=== PATIENT | female | born 1980 | race Hispanic/Latino ===

== ENCOUNTER 2019-10-04 22:21 | Emergency (ER) | payer MEDICAID, SELFPAY ==
--- NOTE | ~2019-10-04 | US_ITS ---
EXAMINATION: US pelvic complete w TV DATE: 10/05/2019 02:40 INDICATION: Vaginal bleeding. Evaluate for ectopic . TECHNIQUE: Real-time transabdominal and transvaginal obstetric ultrasound. FINDINGS: No prior studies for comparison. The uterus measures 7.7 x 3.8 x 6.3 cm. There is an intrauterine gestational sac containing a yolk sa c. No pole identified. Mean sac diameter is 1.49 cm corresponding to 6 week 1 day gestation (ED D 05/29/2020). There is a 1.9 cm corpus luteal cyst of the right ovary. Small amount of complex free f luid in the left adnexa. IMPRESSION: 1. Intrauterine gestational sac corresponding to 6 week 1 day gestation. There is an associated yolk sac. No pole is identified. Recommend follow-up with serial quantitative beta-hCG levels and ul trasound as clinically indicated. 2: 1.9 cm corpus luteal cyst of the right ovary. Reviewed, dictated and finalized at location A. IMPRESSION: 1. Intrauterine gestational sac corresponding to 6 week 1 day gestation. There is an associated yolk sac. No pole is identified. Recommend follow-up wit h serial quantitative beta-hCG levels and ultrasound as clinically indicated. 2: 1.9 cm corpus luteal cyst of the right ovary.
[2019-10-04 22:24] VITALS: BP 120/66; PULSE 76; RESP 19; TEMP 36.3; O2SAT 100
[2019-10-04 23:40] VITALS: BP 112/67; PULSE 73; RESP 18; O2SAT 99
[2019-10-04 23:43] VITALS: BP 121/74; PULSE 76
[2019-10-04 23:44] VITALS: BP 109/68; BP 112/67; PULSE 79; PULSE 88
[2019-10-04 23:56] LABS: Basophils Percent Auto 0.5 % (0.2-1.2); Eosinophils Absolute Auto 0.1 K/mm3 (0-0.3); Eosinophils Percent Auto 0.9 % (0-4.4); Hematocrit 32.7 % (37.0-47.0); Hemoglobin 11.4 g/dL (12.0-15.0); Immature Granulocyte Absolute 0.02 K/mm3 (0.00-0.031); Immature Granulocyte Percent A 0.2 % (0-0.5); Lymphocytes Absolute Auto 2.48 K/mm3 (0.9-3.2); Lymphocytes Percent Auto 29.1 % (18.3-44.2); Mean Corpuscular HGB Conc 34.9 g/dl (32-36); Mean Corpuscular Hemoglobin 31.9 pg (26-34); Mean Corpuscular Volume 91.6 fl (80-100); Mean Platelet Volume 10.6 fl (7.4-10.4); Monocytes Absolute Auto 0.7 K/mm3 (0.1-0.6); Monocytes Percent Auto 8.7 % (2.6-8.5); Neutrophils Absolute Auto 5.2 K/mm3 (1.3-6.7); Neutrophils Percent Auto 60.6 % (45.5-73.1); Platelet Count Result 278 k/mm3 (150-375); Red Blood Count 3.57 M/mm3 (4.2-5.4); Red Cell Distribution Width 11.8 % (11.5-14.5); White Blood Count 8.5 K/mm3 (4.5-10.0)
[2019-10-05] VITALS: BP 113/78; PULSE 79; RESP 15; O2SAT 98
--- NOTE | 2019-10-05 00:30 | ED.FEMALEGU ---
HPI - Female Genitourinary General Chief complaint: Vaginal Bleeding Stated complaint: 6 WEEKS PREG, WAIST PAIN Time Seen by Provider: 10/04/19 22:30 Source: patient Mode of arrival: ambulatory Limitations: no limitations History of Present Illness HPI Narrative: This patient is a 39 year old female approximately 6 weeks GA who presents for evaluation of vaginal bleeding. She states tonight she noticed lower back pain and lower abdominal tightness. Later she noticed a small amount blood when she wipes . She has come to ER tonight because her vaginal bleeding is worsening. She also reports some lightheadedness. She states she had a miscarriage 2 months ago and her last menstrual perior was August 20. MD elicited complaint: vaginal bleeding Related Data Allergies Allergy/AdvReac Type Severity Reaction Status Date / Time No Known Allergies Allergy Unverified 10/05/19 03:55 Review of Systems Review of Systems: All systems reviewed & are unremarkable except as noted in HPI and below Constitutional: Constitutional: Denies chills and Denies fatigue Cardiovascular: Cardiovascular: Denies chest pain, Denies rapid heart rate and Denies radiating jaw, neck or arm pain Respiratory: Respiratory: Denies cough and Denies dyspnea Musculoskeletal: Musculoskeletal: Reports back pain PMFSH Past Medical History Medical History (Updated 10/05/19 @ 03:30 by Jayshree Claire MD) Patient denies medical problems Social History Social History (Updated 03/10/19 @ 09:40 by Dafne Caraballo PA-C) Smoking status: Never smoker Substance use: never Gender identity (if verbalized by the patient): Female Exam Narrative: Exam Narrative: GENERAL: Well-appearing, well-nourished, and in no acute distress. HEAD: Normocephalic, atraumatic EYES: PERRLA and EOMI, conjunctiva clear without discharge THROAT:Mucous membranes moist, Oropharynx normal without erythema, exudate, peritonsillar swelling or fluctuance NECK: Supple, without lymphadenopathy or mass RESPIRATORY: No respiratory distress, Airway patent, Respirations non-labored, Clear to auscultation without rales, rhonchi or wheeze HEART: Regular rate and rhythm. No murmur heard. Normal peripheral pulses. ABDOMEN: Soft, nontender, nondistended, normal active bowel sounds. No masses. No rebound or guarding, No organomegaly. EXTREMITIES: No edema, normal strength with full range of motion. SKIN: Warm, dry, normal color without rash NEURO: Alert and oriented x3. CN 2-12 grossly intact. No focal deficits. PSYCH: Normal mood and affect. : Speculum Exam - Vagina: abnormal vaginal discharge (brown discharge) Speculum Exam - Cervix: Cervical os closed Bimanual Exam- Adnexa, other: no masses Skin: General skin exam: normal color Rashes: no rashes Course Reevaluation(s) Reevaluation #1: I have discussed with patient that she has been found to have ovarian cyst and IUP. She states seh will follow up with PCP. She had small amount of FF likely from ruptured cyst. I discussed she will need to follow this week. Date: 10/05/19 Time: 03:23 Vital Signs Vital signs: Vital Signs Temperature 97.4 F L 10/04/19 22:24 Pulse Rate 76 10/04/19 22:24 Respiratory Rate 19 10/04/19 22:24 Blood Pressure 120/66 10/04/19 22:24 Pulse Oximetry 100 10/04/19 22:24 Temperature 97.4 F L 10/04/19 22:24 Pulse Rate 78 10/05/19 03:54 Respiratory Rate 14 10/05/19 03:54 Blood Pressure 120/78 10/05/19 03:54 Pulse Oximetry 97 10/05/19 03:54 MDM - Female Genitourinary Differential Diagnosis Differential diagnosis: Likely bacterial vaginosis, trichomoniasis, ovarian cyst, ruptured ovarian cyst and other (ectopic, threatened ) Lab Data Attestation: I reviewed the patient's lab results. Result diagrams: 10/04/19 23:42 Labs: Lab Results 10/04/19 10/04/19 10/04/19 Range/Units 23:42 23:42 23:42 WBC 8.5 (4.5-10.0) K/mm3 RBC
[2019-10-05 01:04] LABS: Add Urine Microscopic? YES; Appearance Urine Cloudy (Clear); Bacteria Urine Trace /hpf; Bilirubin Urine Negative (Negative); Blood Urine 2+ (Negative); Color Urine Yellow (Yellow); Glucose Urine UA Negative (Negative); Ketones Urine Negative (Negative); Leukocyte Esterase Ur 3+ LEU/UL (Negative); Mucus Urine Rare /lpf; Nitrate Urine Negative (Negative); Protein Urine 1+ mg/dL (Negative); Specific Grav Ur 1.016 (1.001-1.035); Squamous Epithelial Cell Urine Many /hpf (Few); Urobilinogen Urine Negative mg/dL (<2.0); WBC Urine >75 /hpf
[2019-10-05 01:17] VITALS: BP 111/68; PULSE 71; RESP 15; O2SAT 99
[2019-10-05 02:32] VITALS: BP 112/70; PULSE 72; RESP 15; O2SAT 99
[2019-10-05 03:54] VITALS: BP 120/78; PULSE 78; RESP 14; O2SAT 97
== END 2019-10-05 03:55 | disposition home or self-care (01) ==
PROVIDERS: Emergency Provider General Practice; PCP Obstetrics & Gynecology
DX: O20.9 Hemorrhage in early pregnancy, unspecified (principal); O34.81 Maternal care for other abnormalities of pelvic organs, first trimester; N83.11 Corpus luteum cyst of right ovary; Z3A.01 Less than 8 weeks gestation of pregnancy; O23.41 Unspecified infection of urinary tract in pregnancy, first trimester
CPT/HCPCS: 36415; 76830; 76856; 81001; 81025; 84702; 85025; 85461; 86902; 87070; 87077; 87086; 87088; 87186; 87491; 87591; 87808; 96365; 99284; J0696

== ENCOUNTER 2019-11-20 09:09 | Emergency (ER) | payer MEDICAID, SELFPAY ==
[2019-11-20 09:15] VITALS: BP 118/79; PULSE 80; RESP 18; TEMP 36.2; O2SAT 100
[2019-11-20 09:54] LABS: Add Urine Microscopic? YES; Appearance Urine Cloudy (Clear); Bacteria Urine Trace /hpf; Bilirubin Urine Negative (Negative); Blood Urine 1+ (Negative); Color Urine Yellow (Yellow); Glucose Urine UA Negative (Negative); Ketones Urine Negative (Negative); Leukocyte Esterase Ur 3+ LEU/UL (Negative); Mucus Urine Rare /lpf; Nitrate Urine Negative (Negative); Protein Urine 1+ mg/dL (Negative); RBC Urine 21-50 /hpf (0-2); Specific Grav Ur 1.017 (1.001-1.035); Squamous Epithelial Cell Urine Many /hpf (Few); Urobilinogen Urine Negative mg/dL (<2.0); WBC Urine >75 /hpf
--- NOTE | 2019-11-20 10:02 | ED.FEMALEGU ---
HPI - Female Genitourinary General Chief complaint: Urogenital-Female Stated complaint: UTI sx Time Seen by Provider: 11/20/19 09:41 Source: patient Mode of arrival: ambulatory Limitations: no limitations History of Present Illness HPI Narrative: This patient is a 39 year old female who presents for evaluation of possible UTI. She developed pain with urination this morning. She denies nausea, vomiting, back pain, or fever. She is . She denies vaginal bleeding or spotting. She is getting care in [place], and she has had an ultrasound showing IUP with heart rate. MD elicited complaint: UTI Related Data Allergies Allergy/AdvReac Type Severity Reaction Status Date / Time No Known Allergies Allergy Unverified 10/05/19 03:55 Review of Systems Review of Systems: All systems reviewed & are unremarkable except as noted in HPI and below PMFSH Past Medical History Medical History (Updated 11/20/19 @ 10:07 by Jayshree Claire MD) Patient denies medical problems Surgical History Surgical History (Updated 11/20/19 @ 10:04 by Jayshree Claire MD) No history of previous surgery Social History Social History (Updated 03/10/19 @ 09:40 by Dafne Caraballo PA-C) Smoking status: Never smoker Substance use: never Gender identity (if verbalized by the patient): Female Exam Const: General: no acute distress and alert Orientation/consciousness: patient oriented x3 Eyes: EOM: EOMs intact bilaterally Chest: Chest palpation & inspection: normal inspection of the chest Resp: Effort & Inspection: normal respiratory effort and no retractions Auscultation: clear to auscultation bilaterally Cardio: Rate: regular rate Rhythm: regular rhythm Heart sounds: no murmurs GI: GI Palp: Yes Soft to palpation, No Tenderness to palpation present (GI), No Guarding due to palpation present (GI) and No Rigid due to palpation : General: Yes no CVA tenderness Back/Spine/Pelvis: Back: no CVA tenderness Skin: General skin exam: normal color Rashes: no rashes Neuro: General: patient oriented x3, moves all extremities and CN's II-XI intact bilaterally Extrem: General: normal to inspection Course Reevaluation(s) Reevaluation #1: I reviewed her urine culture from last visit. IT was sensitive to macrobid so I will prescribed that. Date: 11/20/19 Time: 10:06 Vital Signs Vital signs: Vital Signs Temperature 97.2 F L 11/20/19 09:15 Pulse Rate 80 11/20/19 09:15 Respiratory Rate 18 11/20/19 09:15 Blood Pressure 118/79 11/20/19 09:15 Pulse Oximetry 100 11/20/19 09:15 Temperature 97.2 F L 11/20/19 09:15 Pulse Rate 80 11/20/19 10:22 Respiratory Rate 16 11/20/19 10:22 Blood Pressure 117/68 11/20/19 10:22 Pulse Oximetry 100 11/20/19 10:22 MDM - Female Genitourinary Lab Data Labs: Lab Results 11/20/19 Range/Units 09:40 Urine Color Yellow (Yellow) Urine Appearance Cloudy H (Clear) Urine pH 7.0 (5.0-9.0) Ur Specific [place] 1.017 (1.001-1.035) Urine Protein 1+ H (Negative) mg/dL Urine Glucose (UA) Negative (Negative) mg/dL Urine Ketones Negative (Negative) mg/dL Ur Blood (Man) 1+ H (Negative) Urine Nitrate Negative (Negative) Urine Bilirubin Negative (Negative) Urine Urobilinogen Negative (<2.0) mg/dL Leukocyte Esterase Rfl 3+ H (Negative) BRYAN/UL Urine RBC 21-50 H (0-2) /hpf Urine WBC >75 H /hpf Ur Squamous Epith Cells Many H (Few) /hpf Urine Bacteria Trace /hpf Urine Mucus Rare /lpf Discharge Plan Discharge Clinical Impression: Urinary tract infection Qualifiers: Urinary tract infection type: site unspecified Patient Disposition: Home, Self-Care Condition: Stable Instructions: Antibiotic Form, Urinary Tract Infection in (ED) Additional Instructions: Take these antibiotics. Follow up with your OB to make sure you are on the right antibiotics. Prescri
[2019-11-20 10:22] VITALS: BP 117/68; PULSE 80; RESP 16; O2SAT 100
== END 2019-11-20 10:22 | disposition home or self-care (01) ==
PROVIDERS: Emergency Provider General Practice
DX: N39.0 Urinary tract infection, site not specified (principal)
CPT/HCPCS: 81001; 87086; 87088; 99283

== ENCOUNTER 2020-05-23 23:20 | Inpatient (IN) | payer OTHER, SELFPAY ==
[2020-05-23 23:46] VITALS: BP 120/82; PULSE 96
[2020-05-24] VITALS (84 sets, daily range): BP systolic 72–134; BP diastolic 38–84; PULSE 64–107; RESP 14–20; TEMP 36.4–36.7; O2SAT 96–100; BMI 27.9
[2020-05-24 00:33] LABS: Basophils Percent Auto 0.5 % (0.2-1.2); Eosinophils Absolute Auto 0.1 K/mm3 (0-0.3); Eosinophils Percent Auto 0.7 % (0-4.4); Hematocrit 37.7 % (37.0-47.0); Hemoglobin 13.4 g/dL (12.0-15.0); Immature Granulocyte Absolute 0.06 K/mm3 (0.00-0.031); Immature Granulocyte Percent A 0.7 % (0-0.5); Lymphocytes Absolute Auto 2.42 K/mm3 (0.9-3.2); Lymphocytes Percent Auto 27.5 % (18.3-44.2); Mean Corpuscular HGB Conc 35.5 g/dl (32-36); Mean Corpuscular Hemoglobin 32.4 pg (26-34); Mean Corpuscular Volume 91.1 fl (80-100); Mean Platelet Volume 10.8 fl (7.4-10.4); Monocytes Absolute Auto 0.9 K/mm3 (0.1-0.6); Monocytes Percent Auto 10.6 % (2.6-8.5); Neutrophils Absolute Auto 5.3 K/mm3 (1.3-6.7); Platelet Count Result 245 k/mm3 (150-375); Red Blood Count 4.14 M/mm3 (4.2-5.4); Red Cell Distribution Width 12.5 % (11.5-14.5); White Blood Count 8.8 K/mm3 (4.5-10.0)
[2020-05-24] MEDS: LACTATED RINGERS 1,000 ML 125 ML IV CONT ×2 (00:35→01:24)
--- NOTE | 2020-05-24 00:51 | LDADM ---
This patient, Leandra Zurita, was admitted to Labor/Delivery/Recovery 106 on 05/23/20 at 23:21. Plans for labor, pain management and were discussed with patient. Patient/family oriented to hospital policies and general routines including ID bracelet, bed and alarms, visiting hours, pain management, procedures, bathroom and other care routines, personal items, smoking policy, room service/diet and guest tray routines, security routines, and visiting hours. Patient/Family are encouraged to report perceived risks to care and to ask questions if they do not understand what they are told or what they should do. See OBIX for further documentation.
--- NOTE | 2020-05-24 00:54 | WPDANESEPP ---
Anes - Eval Pre Procedure Procedure: Labor epidural Date/Time: 05/24/20 00:54 Surgeon: Leyla Preop Diagnosis: Abd pain with contractions Pre Op Diagnosis: Contractions Patient Data Age: 40 Gender: F Height: 5 ft 6 in Weight: 78.5 kg Last Vital Signs Pulse 96 05/23/20 23:46 BP 120/82 05/23/20 23:46 Allergies Allergy/AdvReac Type Severity Reaction Status Date / Time No Known Allergies Allergy Unverified 10/05/19 03:55 Home Medications Medication Instructions Recorded Confirmed Type amoxicillin-pot clavulanate 1 tablet PO Q12H #14 tablet 10/05/19 Rx [Augmentin] nitrofurantoin monohyd/m-cryst 100 mg PO Q12H 7 Days #14 cap 11/20/19 Rx [Macrobid] Laboratory Tests 05/24/20 05/24/20 00:27 00:27 WBC 8.8 K/mm3 K/mm3 (4.5-10.0) RBC 4.14 M/mm3 L M/mm3 (4.2-5.4) Hgb 13.4 g/dL g/dL (12.0-15.0) Hct 37.7 % % (37.0-47.0) MCV 91.1 fl fl (80-100) MCH 32.4 pg pg (26-34) MCHC 35.5 g/dl g/dl (32-36) RDW 12.5 % % (11.5-14.5) Plt Count 245 k/mm3 k/mm3 (150-375) MPV 10.8 fl H fl (7.4-10.4) Immature Gran % (Auto) 0.7 % H % (0-0.5) Neut % (Auto) 60.0 % % (45.5-73.1) Lymph % (Auto) 27.5 % % (18.3-44.2) [place] % (Auto) 10.6 % H % (2.6-8.5) Eos % (Auto) 0.7 % % (0-4.4) Baso % (Auto) 0.5 % % (0.2-1.2) Lymph # (Auto) 2.42 K/mm3 K/mm3 (0.9-3.2) [place] # (Auto) 0.9 K/mm3 H K/mm3 (0.1-0.6) Eos # (Auto) 0.1 K/mm3 K/mm3 (0-0.3) Baso # (Auto) 0.0 K/mm3 K/mm3 (0.0-0.1) Abs Immat Gran (auto) 0.06 K/mm3 H K/mm3 (0.00-0.031) Absolute Neuts (auto) 5.3 K/mm3 K/mm3 (1.3-6.7) Absolute Nucleated RBC 0.0 K/mm3 K/mm3 (0.0-0.012) Nucleated RBC % 0.0 % % (0.0-0.2) RPR Pending Patient hx anesthesia problems: none Family hx anesthesia problems: none PMFSH Past Medical History Medical History Over weight Patient denies medical problems and not yet delivered Surgical History Surgical History No history of previous surgery Social History Social History Smoking status: Never smoker Substance use: never Gender identity (if verbalized by the patient): Female Exam Day of Procedure 05/24/20 00:54 Patient weight: overweight Airway: Mallampati scale class II Neurological: alert and oriented
[2020-05-24 01:42] LABS: Glucose Point of Care 93 (65-105)
--- NOTE | 2020-05-24 03:21 | PM.IMHP ---
H&P: HPI History of Present Illness Date/Time: 05/24/20 03:21 Chief Complaint: leaking of fluid Narrative: Leandra Zurita is a 40 year old female at 39w6d presenting to L&D with leaking of fluid and contractions. SROM was confirmed in triage. This complicated with gestational diabetes controlled on insulin. Past delivery was complicated with retained placenta which required a D&C and blood transfusion. Comfortable with epidural. Review of Systems Review of Systems: All systems reviewed & are unremarkable except as noted in HPI and below Constitutional: Constitutional: Reports no additional constitutional complaints ENT: Reports system reviewed and no additional complaints, except as documented Cardiovascular: Cardiovascular: Reports no additional cardiovascular complaints Respiratory: Respiratory: Reports no additional respiratory complaints Gastrointestinal: Gastrointestinal: Reports no additional gastrointestinal complaints Genitourinary: Genitourinary: Reports no additional female genitourinary complaints Musculoskeletal: Musculoskeletal: Reports no additional musculoskeletal complaints Integumentary/Breasts: Skin/Breast: Reports system reviewed and no additional complaints, except as docu Neurologic: Reports system reviewed and no additional complaints, except as documented Psychiatric: Psychiatric: Reports no additional psychiatric complaints Endocrine: Endocrine: Reports no additional endocrine complaints Hematologic/Lymphatic: Hematologic/Lymphatic: Reports no additional hematologic/lymphatic complaints Allergic/Immunologic: Allergic/Immunologic: Reports no additional allergic/immunologic complaints [facility] Past Medical History Medical History Over weight Patient denies medical problems and not yet delivered Surgical History Surgical History (Updated 05/24/20 @ 03:27 by Santos Mayer DO) H/O dilation and curettage No history of previous surgery Social History Social History Smoking status: Never smoker Substance use: never Gender identity (if verbalized by the patient): Female Sexual Orientation (if Verbalized by the Patient): Straight or Heterosexual Spiritual care concerns: No Meds Home Medications and Allergies Home Medications Medication Instructions Recorded Confirmed Type PNV cmb#95-ferrous fumarate-FA 1 tablet PO DAILY 05/24/20 05/24/20 History [] cephalexin 500 mg PO DAILY 05/24/20 05/24/20 History insulin NPH isoph U-100 human 4 unit SUBCUT QPM 05/24/20 05/24/20 History [Humulin N NPH U-100 Insulin] insulin NPH isoph U-100 human 6 unit SUBCUT QAM 05/24/20 05/24/20 History [Humulin N NPH U-100 Insulin] Allergies Allergy/AdvReac Type Severity Reaction Status Date / Time No Known Allergies Allergy Unverified 10/05/19 03:55 Vital Signs Vital Signs - 24 hr 05/23/20 23:46 05/24/20 00:30 05/24/20 01:00 Temperature 36.6 C Pulse Rate 96 80 Blood Pressure 120/82 111/75 Pulse Oximetry 98 05/24/20 01:02 05/24/20 01:03 05/24/20 01:05 Temperature Pulse Rate 84 81 76 Blood Pressure 119/77 119/66 120/67 Pulse Oximetry 98 05/24/20 01:06 05/24/20 01:09 05/24/20 01:10 Temperature Pulse Rate 75 70 Blood Pressure 114/67 120/60 Pulse Oximetry 97 05/24/20 01:11 05/24/20 01:12 05/24/20 01:13 Temperature Pulse Rate 71 82 75 Blood Pressure 113/60 112/67 112/63 Pulse Oximetry 05/24/20 01:15 05/24/20 01:16 05/24/20 01:18 Temperature Pulse Rate 77 77 Blood Pressure 114/65 114/65 Pulse Oximetry 97 05/24/20 01:20 05/24/20 01:21 05/24/20 01:23 Temperature Pulse Rate 77 70 Blood Pressure 108/58 L 110/61 Pulse Oximetry 97 05/24/20 01:25 05/24/20 01:26 05/24/20 01:28 Temperature Pulse Rate 97 93 Blood Pressure 108/49 L 105/70 Pulse Oximetry 97
--- NOTE | 2020-05-24 03:39 | WPDHPUPDATE1 ---
History and Physical Update Update Date/Time: 05/24/20 03:39 History and Physical has been reviewed, including an updated exam of the patient. There are NO changes in the patient's condition. Risks, benefits, and alternatives have been discussed and questions answered. Patient agrees to proceed with procedure.
[2020-05-24 03:48] LABS: Glucose Point of Care 112 (65-105)
[2020-05-24] MEDS: OXYTOCIN 30 UNITS/NS 500 ML 30 UNITS/500 ML BAG 999 UNITS IV CONT (04:14)
[2020-05-24] MEDS: miSOPROStol 200 MCG TABLET 1000 MCG RECTAL (04:49)
[2020-05-24] MEDS: OXYTOCIN 30 UNITS/NS 500 ML 30 UNITS/500 ML BAG 125 UNITS IV CONT (04:50)
--- NOTE | 2020-05-24 05:08 | PM.OBPRVD ---
OB - Delivery Note Procedure Delivery date: 05/24/20 Procedure: Normal spontaneous vaginal delivery, manual removal of placenta events: Gestational Diabetes (insulin controlled) and Meconium Stained Fluid Intrapartal events: None Induction method: none Delivery monitor: external FHT and external uterine Route of delivery: Laceration Description: None Specimen: Yes Quantitative Blood Loss (ml): 500 Anesthesia type: Epidural Complications: Retained placenta, manual removal of placenta. Rectal cytotec and ancef 2gm. Narrative: Once she was noted to be complete and ready to push, the labor bed was broken down and legs were placed in stirrups for support. With contractions and maternal efforts, the presented in MOR position. The head was delivered. Checked for nuchal cord, no nuchal cord noted. Gentle downward traction was applied and the anterior shoulder delivered without issues, followed by the posterior shoulder and rest of the body. was vigorous and crying, so delayed cord clamping of approximately 1 minute was performed. The cord was clamped and cut. Cord gasses collected. IV oxytocin administered. Placenta was undelivered after 30 minutes of active management with cord traction and fundal massage. Manual extraction of placenta was performed. Placenta was examined and appeared to be intact. Rectal cytotec 1000mcg given. Exam was performed to identify any lacerations. No lacerations noted.. Good hemostasis noted. Patient tolerated the procedure well. All instrument and sponge counts were correct at the end of the procedure. Ancef ordered. [facility] Baby Date of : 05/24/20 Time of : 04:14 Weeks of gestation at delivery: 39 gender: Male Weight (pounds): 9 Weight (ounces): 8 presentation: vertex position: Left Occiput Anterior Placenta delivery description: Manual Removal cord vessel description: 3 Vessels, Clamped/Cut and Delayed Cord Clamping score one minute: 8 score five minutes: 9
[2020-05-24] MEDS: ceFAZolin 2 GM/D5W 50 ML 2 GM/50 ML BAG IVPB (05:33)
[2020-05-24] MEDS: METHYLERGONOVINE MALEATE 0.2 MG/ML VIAL IM (06:02)
[2020-05-24] MEDS: ONDANSETRON INJ 4 MG/2 ML VIAL IV PUSH (06:25)
[2020-05-24] MEDS: IBUPROFEN 600 MG TABLET PO ×2 (06:42→15:40)
--- NOTE | 2020-05-24 09:42 | OBPPTRN ---
Patient transferred to post room # 286 via wheelchair. Support person present. Oriented to unit, room, information board, rooming in, admission packet and security measures. Patient verbalizes understanding.
[2020-05-24] MEDS: DOCUSATE SODIUM 100 MG CAPSULE PO (15:40)
[2020-05-24] MEDS: ACETAMINOPHEN 325 MG TABLET 650 MG PO (19:52)
[2020-05-25] MEDS: IBUPROFEN 600 MG TABLET PO ×2 (00:16→09:25)
[2020-05-25 04:54] LABS: Hematocrit 33.3 % (37.0-47.0); Hemoglobin 11.5 g/dL (12.0-15.0)
[2020-05-25 05:13] LABS: Glucose 97 mg/dL (65-105)
--- NOTE | 2020-05-25 07:17 | WPDANLDPN2 ---
Anes-Prog Note L&D Date/Time: 05/25/20 07:17 Comfortable throughout: labor and delivery Neuraxial method: epidural Epidural/Spinal procedure site: clean & non-tender Neuro status: Neuro function grossly intact. Cardiovascular status: normal Respiratory status: normal Airway patency: baseline Mental status: baseline Post-Op hydration status: normal Vital Signs: Last Vital Signs Temp 36.7 C 05/24/20 19:30 Pulse 69 05/24/20 19:30 Resp 14 05/24/20 19:30 BP 106/66 05/24/20 19:30 Pulse Ox 97 05/24/20 19:30 Pain score (VAS): 0 I/O: Intake & Output 05/24/20 05/24/20 05/25/20 15:59 23:59 07:59 Output Total 477 Balance -477 Post-procedural complaints: none Patient feedback: Patient satisfied with anesthetic care.
--- NOTE | 2020-05-25 07:33 | PM.OBPNVD ---
OB - PN: Subj Subjective Date/time seen: 05/25/20 07:33 s/p on 05/24. Delivery was complicated with retained placenta with subsequent manual removal of placenta and PPH. Given methergine and cytotec. She is doing well this morning. Pain is tolerable, pain medication is helping. Lochia is decreasing. Denies fevers, chills. OB - PN: Obj Data Labs CBC & Chem 7: 05/25/20 04:45 05/25/20 04:45 Labs: Laboratory Results - last 24 hr 05/25/20 05/25/20 04:45 04:45 Hgb 11.5 L Hct 33.3 L Glucose 97 OB - PN A/P Assessment and Plan (1) (normal spontaneous vaginal delivery): Code(s): O80 - Encounter for full-term uncomplicated delivery Status: Acute Assessment and Plan: Routine care Pain management Ambulate (2) hemorrhage: Code(s): O72.1 - Other immediate hemorrhage Status: Acute Assessment and Plan: QBL 1308mls Hb 11.5 this morning On iron (3) Gestational diabetes: Code(s): O24.419 - Gestational diabetes mellitus in , unspecified control Status: Acute Assessment and Plan: BG 97 this morning Time Spent With Patient Time: Total time spent is greater than 50% in coordination of care (as documented) at patient's floor/unit and/or counseling patient: Exam Const: General: cooperative, healthy appearing, comfortable, no acute distress, well developed, alert, awake and Physically active HENMT: Head: normocephalic and atraumatic Resp: Effort & Inspection: normal respiratory effort and able to speak in complete sentences Cardio: Rate: regular rate GI: GI Palp: No abdominal tenderness, Yes Soft to palpation and Yes Firmness to palpation present (GI) (uterine fundus firm) Neuro: General: oriented to person, oriented to place, oriented to time and patient oriented x3 Psych: Appearance: grossly normal Mental Status: mental status grossly normal Speech and movement: Normal speech and movement present Affect: normal affect Attitude: cooperative Thought process: Normal thought process present Thought content: Yes Normal thought content present Insight: Good insight present (Psych) Judgement: Good judgement present (Psych)
--- NOTE | 2020-05-25 07:39 | PM.OBDSVD ---
DS: Admitting Diagnosis Admitting Diagnosis Admitting Diagnosis: Labor DS: Discharge Diagnosis Discharge Diagnosis (1) (normal spontaneous vaginal delivery): Code(s): O80 - Encounter for full-term uncomplicated delivery Status: Acute Assessment and Plan: Routine care Pain management Ambulate (2) Gestational diabetes: Code(s): O24.419 - Gestational diabetes mellitus in , unspecified control Status: Acute Assessment and Plan: BG 97 this morning (3) hemorrhage: Code(s): O72.1 - Other immediate hemorrhage Status: Acute Assessment and Plan: QBL 1308mls Hb 11.5 this morning On iron OB - DS: Summary OB Procedures : None OB Procedures Intrapartum: Spontaneous Vag Delivery OB Procedures: : None Time Spent with Patient Time attestation: Total time spent providing and/or coordinating discharge services: Exam Const: General: cooperative, healthy appearing, comfortable, no acute distress, well developed, alert, awake and Physically active Orientation/consciousness: oriented to person, oriented to place, oriented to time and patient oriented x3 HENMT: Head: normocephalic and atraumatic Resp: Effort & Inspection: normal respiratory effort, able to speak in complete sentences, normal respiratory pattern and no audible wheezes Cardio: Rate: regular rate GI: GI Palp: No abdominal tenderness, Yes Soft to palpation and Yes Firmness to palpation present (GI) (uterine fundus firm) Neuro: General: oriented to person, oriented to place, oriented to time and patient oriented x3 Psych: Appearance: grossly normal Mental Status: mental status grossly normal Speech and movement: Normal speech and movement present Affect: normal affect Attitude: cooperative Thought process: Normal thought process present Insight: Good insight present (Psych) Judgement: Good judgement present (Psych) DS: Data Data Completed and Pending Pending studies at discharge: Pending at discharge 05/24/20 04:46 Surgical [PTH] Routine Labs on day of discharge: Labs from last 24 hours 05/25/20 05/25/20 04:45 04:45 Hgb 11.5 L Hct 33.3 L Glucose 97 Discharge Plan Discharge Attending physician on discharge: Santos Mayer Discharging Clinician: Santos Mayer Patient Disposition: Home, Self-Care Activity: may shower, as tolerated and pelvic rest Diet: as tolerated and regular Patient Instructions: Antibiotic Form Stand Alone Forms: General Discharge Information Follow-up/Referrals: Santos Mayer DO [Physician] - Discharge Medications: New docusate sodium 100 mg Capsule 100 mg PO BID PRN (Reason: Constipation) Qty: 60 RF: 0 ibuprofen 600 mg Tablet 600 mg PO Q6H PRN (Reason: Cramping) Qty: 90 RF: 0 Continued PNV cmb#95-ferrous fumarate-FA [] 28 mg iron- 800 mcg tablet 1 tablet PO DAILY RF: 0 Discontinued cephalexin 500 mg capsule 500 mg PO DAILY RF: 0 Humulin N NPH U-100 Insulin 100 unit/mL suspension 6 unit SUBCUT QAM RF: 0 Humulin N NPH U-100 Insulin 100 unit/mL suspension 4 unit SUBCUT QPM RF: 0 Date of admission: 05/23/20 23:21 Primary Care Provider: Renaldo Ma Admitting Provider: Santos Mayer Attending physician on admission: Santos Mayer Condition: Stable
[2020-05-25 08:55] VITALS: BP 98/57; PULSE 71; RESP 18; TEMP 36.3; O2SAT 95
--- NOTE | 2020-05-25 09:07 | PC.NURSE ---
Consulted with patient, reviewed infant feeding cues, frequencies, duration of feedings, feeding elimination flow sheet, and signs of adequate intake. Mother verbalizes she is able to independently latch with appropriate positioning/alignment. She states she is having discomfort on left side and may have an abrasion starting. Mom asked to call out for next feeding to have latch assessed. Mom states she is putting infant to breast and then supplementing with formula per her choice. Mom is feeding infant every 4 hours. Educated mom on if infant goes to solely we would like to eat 8-12 times in 24 hours. is currently meeting outcomes for weight, output, jaundice and feeding frequencies. Mother states she feels confident to continue effective at home. Reviewed transition to breast milk, signs of adequate intake, and engorgement/relief. Instructed to call ICP if intake/output less than required. Reviewed community resources on the [facility] website and in the Mom/Baby guide. Information on outpatient services provided. Mother has no further questions at this time.
[2020-05-25 09:12] LABS: Rapid Plasma Reagin Non-Reactive (NonReactive)
[2020-05-25] MEDS: MULTIVIT/MIN/PREN/FOL AC/IRON TABLET 1 TAB PO (09:24)
[2020-05-25] MEDS: LANOLIN (LANSINOH) 7.5 GM CREAM 2 APPLIC (11:06)
--- NOTE | 2020-05-25 11:51 | PC.NURSE ---
Patient instructed on viewing the discharge video Mother & Baby Care, The First Two Weeks . Patient was given the opportunity and encouraged to ask questions. Patient verbalized understanding of information shared and has been given the mother/baby guide for home reference.
[2020-05-27 11:27] VITALS: BP 124/73; PULSE 72; RESP 20; TEMP 36.8; O2SAT 100
== END 2020-05-25 14:49 | disposition home or self-care (01) | DRG 541 ==
LOC: ANHLDR 05-24 00:04 → ANHOB2 05-24 09:51
PROVIDERS: Admitting Provider Obstetrics & Gynecology; Visit Provider Obstetrics & Gynecology
DX: O24.424 Gestational diabetes mellitus in childbirth, insulin controlled (principal); Z37.0 Single live birth; Z3A.39 39 weeks gestation of pregnancy; O77.0 Labor and delivery complicated by meconium in amniotic fluid; O72.0 Third-stage hemorrhage
CPT/HCPCS: 36415; 82947; 82948; 85014; 85018; 85025; 86592; 86850; 86880; 86900; 86901; 86902; 88307; A9270; J0690; J2210; J2405; J2590; J2795; J7120

== ENCOUNTER 2021-04-28 12:39 | Emergency (ER) | payer OTHER, SELFPAY ==
--- NOTE | ~2021-04-28 | XR_ITS ---
EXAMINATION: XR chest 1V portable EXAM DATE: 04/28/2021 14:58 INDICATION: chest tightness TECHNIQUE: Portable AP frontal chest x-ray was obtained. There is no prior study for comparison. FINDINGS: The lungs are clear. There are no pleural effusions. The cardiomediastinal silhouette is within normal limits. There is no pneumothorax suspected. The bones and soft tissues are unremarkab le. IMPRESSION: No acute cardiopulmonary findings. Reviewed, dictated and finalized at location A. ALS OFFICER
[2021-04-28 12:44] VITALS: BP 121/71; PULSE 72; RESP 14; TEMP 36.4; O2SAT 100
[2021-04-28 14:29] VITALS: BP 114/78; PULSE 68; RESP 16; O2SAT 99
--- NOTE | 2021-04-28 14:41 | ED.GENADULT ---
HPI - General Adult General Chief complaint: Nausea/Vomiting/Diarrhea Stated complaint: Fever, CAMPBELL, Vomit Time Seen by Provider: 04/28/21 14:00 History of Present Illness HPI narrative: 40-year-old female present to the emergency department for evaluation of nausea and vomiting. Patient states that her symptoms started yesterday. Patient states she does have some mild upper abdominal pain with it. Patient denies any diarrhea. Patient states that she did have some chest tightness earlier this morning but denies any current chest pain cough or shortness of breath. Patient denies any sick contacts. Patient is not vaccinated for COVID. Denies any significant past medical history. Related Data Allergies Allergy/AdvReac Type Severity Reaction Status Date / Time No Known Allergies Allergy Unverified 10/05/19 03:55 Review of Systems Review of Systems: CONSTITUTIONAL: Denies fever, chills, or sweats. EYES: Denies visual changes, redness, or discharge. ENT: Denies rhinorrhea, congestion, sore throat, or otalgia. CARDIOVASCULAR: Denies chest pain, palpitations, or edema. RESPIRATORY: Denies cough or dyspnea. GASTROINTESTINAL: Nausea vomiting with mild abdominal pain GENITOURINARY: Denies dysuria or hematuria. SKIN: Denies rash or itching. MUSCULOSKELETAL: Denies back pain, joint pain, or myalgia. NEUROLOGIC: Denies headache, numbness, or weakness. PSYCHIATRIC: Denies anxiety or depression. PMFSH Past Medical History Medical History Over weight Patient denies medical problems and not yet delivered Surgical History Surgical History (Updated 05/24/20 @ 03:27 by Santos Mayer DO) H/O dilation and curettage No history of previous surgery Social History Social History Smoking status: Never smoker Substance use: never Gender identity (if verbalized by the patient): Female Sexual Orientation (if Verbalized by the Patient): Straight or Heterosexual Spiritual care concerns: No Exam Narrative: APPEARANCE: Well appearing, no pain in distress, well-nourished. HEAD: normocephalic, atraumatic. EYES: PERRLA/EOMI, conjunctivae clear. NECK: Supple. No adenopathy, no masses. RESPIRATORY: Airway patent, respirations nonlabored. Clear to auscultation bilaterally, no rales, rhonchi, wheezing. CARDIOVASCULAR: Regular rate and rhythm without murmurs rubs or gallops. ABDOMINAL: Soft and benign abdomen, normal bowel sounds, minor upper abdominal tenderness to palpation. No rebound, no guarding. MUSCULOSKELETAL: Moves all extremities. Strength/ROM intact, No edema, No calf tenderness. NEURO: Alert. Cranial nerves II through XII intact. Good gait. Good coordination SKIN: Warm, dry. Normal Color PSYCHIATRIC: Normal affect/mood. Course Course Emergency Course: Patient was updated on the plan for treatment. Labs were ordered to evaluate for any electrolyte abnormality. Chest x-ray was ordered due to patient complaining of previous chest tightness. COVID was also ordered. Vital Signs Vital signs: Vital Signs Temperature 97.6 F 04/28/21 12:44 Pulse Rate 72 04/28/21 12:44 Respiratory Rate 14 04/28/21 12:44 Blood Pressure 121/71 04/28/21 12:44 Pulse Oximetry 100 04/28/21 12:44 Temperature 97.6 F 04/28/21 12:44 Pulse Rate 64 04/28/21 17:05 Respiratory Rate 18 04/28/21 17:05 Blood Pressure 110/67 04/28/21 17:05 Pulse Oximetry 99 04/28/21 17:05 Medical Decision Making Vital Signs Vital Signs: Vital Signs Temperature 97.6 F 04/28/21 12:44 Pulse Rate 72 04/28/21 12:44 Respiratory Rate 14 04/28/21 12:44 Blood Pressure 121/71 04/28/21 12:44 Pulse Oximetry 100 04/28/21 12:44 Temperature 97.6 F 04/28/21 12:44 Pulse Rate 64 04/28/21 17:05 Respiratory Rate 18 04/28/21 17:05 Blood Pressure 110/67 04/28/21 17:05 Pulse Oximetry 99 04/28/21 17:05 Lab Data
[2021-04-28 15:24] VITALS: BP 106/77; PULSE 64; RESP 16; O2SAT 98
[2021-04-28] MEDS: SODIUM CHLORIDE 0.9% IV 1,000 ML 999 ML IV CONT (15:25)
[2021-04-28] MEDS: ONDANSETRON INJ 4 MG/2 ML VIAL IV PUSH (15:25)
[2021-04-28 15:39] LABS: Basophils Percent Auto 0.5 % (0.2-1.2); Hemoglobin 13.2 g/dL (12.0-15.0); Immature Granulocyte Absolute 0.01 K/mm3 (0.00-0.031); Immature Granulocyte Percent A 0.2 % (0-0.5); Lymphocytes Percent Auto 34.2 % (18.3-44.2); Mean Corpuscular HGB Conc 34.7 g/dl (32-36); Mean Corpuscular Hemoglobin 31.1 pg (26-34); Mean Corpuscular Volume 89.6 fl (80-100); Mean Platelet Volume 10.9 fl (7.4-10.4); Monocytes Absolute Auto 0.4 K/mm3 (0.1-0.6); Monocytes Percent Auto 8.9 % (2.6-8.5); Neutrophils Absolute Auto 2.5 K/mm3 (1.3-6.7); Neutrophils Percent Auto 56.2 % (45.5-73.1); Platelet Count Result 228 k/mm3 (150-375); Red Blood Count 4.24 M/mm3 (4.2-5.4); Red Cell Distribution Width 11.9 % (11.5-14.5); White Blood Count 4.4 K/mm3 (4.5-10.0)
[2021-04-28 15:48] LABS: Add Urine Microscopic? YES; Appearance Urine Cloudy (Clear); Bacteria Urine Trace /hpf; Bilirubin Urine Negative (Negative); Blood Urine Negative (Negative); Color Urine Yellow (Yellow); Glucose Urine UA Negative (Negative); Ketones Urine Negative (Negative); Leukocyte Esterase Ur 3+ LEU/UL (Negative); Mucus Urine Heavy /lpf; Nitrate Urine Negative (Negative); Protein Urine 1+ mg/dL (Negative); Specific Grav Ur 1.019 (1.001-1.035); Squamous Epithelial Cell Urine Many /hpf (Few); Urobilinogen Urine Negative mg/dL (<2.0); WBC Urine >75 /hpf
[2021-04-28 15:49] LABS: Lipase 84 U/L (23-300)
[2021-04-28 15:50] LABS: Alanine Aminotransferase 30 U/L (4-35); Albumin Level 4.7 g/dL (3.5-5.1); Alkaline Phosphatase 52 U/L (38-126); Anion Gap 11 mmol/L (8-16); Aspartate Amino Transferase 30 U/L (14-36); Bilirubin,Total 0.3 mg/dL (0.2-1.3); Blood Urea Nitrogen 17 mg/dL (7-17); Calcium 9.5 mg/dL (8.4-10.2); Carbon Dioxide 24 mmol/L (22-30); Chloride 103 mmol/L (98-107); Estimated CRCL calculation 101 ml/min; Estimated Glomerular Filt Rate > 60; Glucose 121 mg/dL (65-110); Potassium 4.1 mmol/L (3.4-5.0); Sodium 138 mmol/L (137-145)
[2021-04-28 16:05] VITALS: BP 112/76; PULSE 65; RESP 18; O2SAT 98
[2021-04-28 17:05] VITALS: BP 110/67; PULSE 64; RESP 18; O2SAT 99
[2021-04-29 01:23] LABS: SARS-CoV-2 RNA PCR Positive
== END 2021-04-28 17:13 | disposition home or self-care (01) ==
PROVIDERS: Emergency Provider Emergency Medicine
DX: U07.1 COVID-19 (principal); R11.2 Nausea with vomiting, unspecified; N39.0 Urinary tract infection, site not specified
CPT/HCPCS: 36415; 71045; 80053; 81001; 83605; 83690; 85025; 87086; 87088; 96361; 96365; 96375; 99284; C9803; J0696; J2405; J7030; U0003; U0005

== ENCOUNTER 2022-02-21 01:42 | Emergency (ER) | payer OTHER, SELFPAY ==
[2022-02-21 01:46] VITALS: BP 128/69; PULSE 66; RESP 17; TEMP 36.7; O2SAT 100
[2022-02-21] MEDS: methylPREDNISolone SOD SUCC 125 MG VIAL IV PUSH (02:21)
[2022-02-21] MEDS: FAMOTIDINE 20 MG/2 ML VIAL IV PUSH (02:21)
[2022-02-21] MEDS: diphenhydrAMINE HCl INJ 50 MG/ML VIAL 25 MG IV PUSH (02:21)
--- NOTE | 2022-02-21 02:44 | ED.ALLEREA ---
HPI - Allergic Reaction General Chief complaint: Allergic Reaction <EARNEST Bridges Last Filed: 02/21/22 03:37> Stated complaint: Itching <EARNEST Bridges Last Filed: 02/21/22 03:37> Time Seen by Provider: 02/21/22 01:57 <EARNEST Bridges Last Filed: 02/21/22 03:37> Source: patient <EARNEST Bridges Last Filed: 02/21/22 03:37> Mode of arrival: ambulatory <EARNEST Bridges Last Filed: 02/21/22 03:37> Limitations: no limitations <EARNEST Bridges Last Filed: 02/21/22 03:37> History of Present Illness HPI narrative: This is a 41 year old female that presents to the ER for hives noted today. Reports diffuse itching. She tried an over the counter cream with little relief. No new medications, soaps, lotions or detergents. Denies swelling of her face or throat, or dyspnea. <EARNEST Bridges Last Filed: 02/21/22 03:37> Related Data Home medications: Home Medications Medication Instructions Recorded Confirmed No Home Medications 02/21/22 02/21/22 <EARNEST Bridges Last Filed: 02/21/22 03:37> Allergies/adverse reactions: Allergies Allergy/AdvReac Type Severity Reaction Status Date / Time No Known Allergies Allergy Verified 02/21/22 01:51 <EARNEST Bridges Last Filed: 02/21/22 03:37> Review of Systems Review of Systems: CONSTITUTIONAL: Denies fever EYES: Denies discharge. ENT: Denies sore throat CARDIOVASCULAR: Denies chest pain RESPIRATORY: Denies dyspnea. GASTROINTESTINAL: Denies vomiting SKIN: Reports rash and itching. MUSCULOSKELETAL: Denies back pain, joint pain, or myalgia. NEUROLOGIC: Denies weakness. PSYCHIATRIC: Denies anxiety <EARNEST Bridges Last Filed: 02/21/22 03:37> All systems reviewed & are unremarkable except as noted in HPI and below <Dafne Caraballo PA-C - Last Filed: 02/21/22 03:37> [facility] Past Medical History Medical History: Medical History Over weight Patient denies medical problems and not yet delivered <Dafne Caraballo PA-C - Last Filed: 02/21/22 03:37> Surgical History Surgical History: Surgical History (Updated 05/24/20 @ 03:27 by Santos Mayer DO) H/O dilation and curettage No history of previous surgery <Dafne Caraballo PA-C - Last Filed: 02/21/22 03:37> Social History Social History: Social History Smoking status: Never smoker Substance use: never Gender identity (if verbalized by the patient): Female Sexual Orientation (if Verbalized by the Patient): Straight or Heterosexual Spiritual care concerns: No <Dafne Caraballo PA-C - Last Filed: 02/21/22 03:37> Exam Narrative: GENERAL: Well-appearing, well-nourished, and in no acute distress. HEAD: Normocephalic, atraumatic. EYES: EOMI. ENT: Mucous membranes moist. Oropharynx without tonsillar hypertrophy exudate or other lesions. No swelling in the throat CHEST: Clear to auscultation. No respiratory distress. No wheezes rales or rhonchi HEART: Regular rate and rhythm. No murmur heard. Normal peripheral pulses. EXTREMITIES: Normal range of motion. No edema. SKIN: Warm, dry. Hives noted on the chest, arms, back and upper legs NEURO: No focal deficits. Alert and oriented x3. PSYCH: Normal mood and affect <Dafne Caraballo PA-C - Last Filed: 02/21/22 03:37> Course [employer] SIGN [employer]SEMBLER/PA Physician Supervision For this encounter, I have reviewed the mid-level provider documentation, treatment plan and medical decision making. I have had [id number] time with the patient. physical exam revealed a well-appearing 41-year-old female with Diffuse urticaria There is no known trigger for her symptoms. Patient responded to Benadryl, steroids and Pepcid. Patient will be discharged. <Cliff H. Zych, MD - Last Filed: 02/21/22 04:12> Vital Signs Vital signs: Vital Signs
[2022-02-21 03:57] VITALS: BP 126/70; PULSE 67; RESP 18; O2SAT 100
== END 2022-02-21 03:57 | disposition home or self-care (01) ==
PROVIDERS: Emergency Provider Emergency Medicine
DX: L50.9 Urticaria, unspecified (principal); E66.3 Overweight
CPT/HCPCS: 96374; 96375; 99284; J1200; J2930

== ENCOUNTER 2022-08-15 16:34 | Emergency (ER) | payer OTHER, SELFPAY ==
[2022-08-15 16:55] LABS: Appearance Urine Clear (Clear); Bacteria Urine None Seen /hpf; Bilirubin Urine Negative (Negative); Blood Urine Trace (Negative); Color Urine Yellow (Yellow); Glucose Urine UA Negative (Negative); Ketones Urine Negative (Negative); Leukocyte Esterase Ur 1+ LEU/UL (Negative); Nitrate Urine Negative (Negative); Non Pathogenic Casts 0-2; Protein Urine Negative (Negative); RBC Urine 0-2 /hpf (0-2); Specific Grav Ur 1.019 (1.001-1.035); Squamous Epithelial Cell Urine Occasional /hpf (Few); Urobilinogen Urine 0.2 mg/dL (<2.0)
[2022-08-15 17:03] LABS: Add Urine Microscopic? YES
[2022-08-15 17:16] VITALS: PULSE 56; RESP 16; TEMP 36.5; O2SAT 99
[2022-08-15] MEDS: DOXYCYCLINE HYCLATE 100 MG TABLET PO (20:36)
[2022-08-15] MEDS: cefTRIAXone 1 GM VIAL 0.5 GM IM (20:36)
--- NOTE | 2022-08-15 21:17 | ED.FEMALEGU ---
HPI - Female Genitourinary General Chief complaint: Urogenital-Female Stated complaint: UTI Time Seen by Provider: 08/15/22 19:13 Source: patient, RN notes reviewed and old records reviewed Mode of arrival: ambulatory Limitations: no limitations History of Present Illness HPI Narrative: This is a 42 year old female who presents for evaluation of possible UTI. She reports pelvic pressure and cramping with urination. She denies back pain, fever, chills, hematuria, nausea, vomiting. She denies abdominal vaginal discharge. She has also noticed left labial lump today but denies any pain or drainage. Related Data Allergies Allergy/AdvReac Type Severity Reaction Status Date / Time No Known Allergies Allergy Verified 08/15/22 17:59 Review of Systems Review of Systems: All systems reviewed & are unremarkable except as noted in HPI and below PMFSH Past Medical History Medical History Over weight Patient denies medical problems and not yet delivered Surgical History Surgical History (Updated 05/24/20 @ 03:27 by Santos Mayer DO) H/O dilation and curettage No history of previous surgery Social History Social History Smoking status: Never smoker Substance use: never Gender identity (if verbalized by the patient): Female Sexual Orientation (if Verbalized by the Patient): Straight or Heterosexual Spiritual care concerns: No Exam Const: General: no acute distress and alert Nutritional Appearance: well nourished Orientation/consciousness: patient oriented x3 Limitations: no limitations HENMT: Head: normal to inspection Face/Nose/Sinus: Normal external nose present Eyes: EOM: EOMs intact bilaterally Chest: Chest palpation & inspection: normal inspection of the chest Resp: Effort & Inspection: normal respiratory effort Auscultation: clear to auscultation bilaterally Cardio: Rate: regular rate Rhythm: regular rhythm Heart sounds: no murmurs GI: GI Palp: Yes Soft to palpation, No Tenderness to palpation present (GI), No Guarding due to palpation present (GI) and No Rigid due to palpation Auscultation: normal bowel sounds : Speculum Exam - Cervix: normal appearance of the cervix and Cervical os closed Bimanual exam- vagina & uterus: cervical motion tenderness Bimanual Exam- Adnexa, other: no masses Other: left lower labial lump, no erythema, no wound, no drainage, no tenderness. Skin: General skin exam: normal color Rashes: no rashes Wounds: no wounds Neuro: General: patient oriented x3, moves all extremities and CN's II-XI intact bilaterally Cranial nerves: Yes Nystagmus not present Speech: normal speech Extrem: General: normal to inspection Course Reevaluation(s) Reevaluation #1: I Discussed with patient that she likely has bartholin cyst. She does not have any signs of infection. I discussed treatment with drainage vs follow. She would like to follow up with fine sander. Will start antibiotics for PID. Date: 08/15/22 Time: 21:18 Vital Signs Vital signs: Vital Signs Temperature 97.7 F 08/15/22 17:16 Pulse Rate 56 L 08/15/22 17:16 Respiratory Rate 16 08/15/22 17:16 Pulse Oximetry 99 08/15/22 17:16 Oxygen Delivery Room Air 08/15/22 17:16 Temperature 97.6 F 08/15/22 21:37 Pulse Rate 62 08/15/22 21:37 Respiratory Rate 15 08/15/22 21:37 Blood Pressure 127/77 08/15/22 21:37 Pulse Oximetry 98 08/15/22 21:37 Oxygen Delivery Room Air 08/15/22 17:16 MDM - Female Genitourinary Lab Data Labs: Lab Results 08/15/22 08/15/22 Range/Units 16:44 20:41 Urine Color Yellow (Yellow) Urine Appearance Clear (Clear) Urine pH 7.0 (5.0-9.0) Ur Specific [place] 1.019 (1.001-1.035) Urine Protein Negative (Negative) mg/dL Urine Glucose (UA) Negative (Negative) mg/dL Urine Ketones Negative (Negative)
[2022-08-15 21:23] VITALS: BP 123/78; PULSE 65; RESP 18; O2SAT 100
[2022-08-15 21:37] VITALS: BP 127/77; PULSE 62; RESP 15; TEMP 36.4; O2SAT 98
== END 2022-08-15 21:38 | disposition home or self-care (01) ==
PROVIDERS: Emergency Medicine; Emergency Provider General Practice
DX: N73.0 Acute parametritis and pelvic cellulitis (principal); N75.0 Cyst of Bartholin's gland; E66.3 Overweight; Z68.23 Body mass index [BMI] 23.0-23.9, adult
CPT/HCPCS: 81001; 81025; 87070; 87086; 87491; 87591; 87808; 96372; 99284; A9270; J0696

== ENCOUNTER 2022-11-01 14:44 | Outpatient (CLI) | payer OTHER, SELFPAY ==
--- NOTE | ~2022-11-01 | MM_ITS ---
EXAMINATION: MM screening keith BI w [facility] HISTORY: Screening TECHNIQUE: Craniocaudal and mediolateral oblique 3-D tomosynthesis images were obtained and synthetic 2-D images were generated. CAD analysis was submitted and interpreted. COMPARISON: No prior mammogram is available for comparison at this institution. BREAST PARENCHYMAL COMPOSITION: The breasts are heterogeneously dense, which may obscure small masses . FINDINGS: There is no evidence of suspicious mass, calcification, or architectural distortion to sugg est malignancy in either breast. There has been no suspicious interval change. IMPRESSION: 1. No mammographic evidence of malignancy. 2. Recommend routine screening mammography in one year. BI-RADS Category 1: Negative Reviewed, dictated and finalized at location A.
== END 2022-11-01 14:45 | disposition home or self-care (01) ==
LOC: ANHIMG 14:46
PROVIDERS: PCP Registered Nurse; Visit Provider Registered Nurse
DX: Z12.31 Encounter for screening mammogram for malignant neoplasm of breast (principal)
CPT/HCPCS: 77063; 77067

== ENCOUNTER 2023-11-20 22:29 | Emergency (ER) | payer SELFPAY ==
[2023-11-20 22:47] VITALS: BP 119/65; PULSE 82; RESP 18; TEMP 36.5; O2SAT 99
[2023-11-20 23:10] LABS: Add Urine Microscopic? YES; Appearance Urine Clear (Clear); Bilirubin Urine Negative (Negative); Blood Urine Negative (Negative); Color Urine Yellow (Yellow); Glucose Urine UA Negative (Negative); Ketones Urine Trace mg/dL (Negative); Leukocyte Esterase Ur Trace LEU/UL (Negative); Nitrate Urine Negative (Negative); Non Pathogenic Casts 0-2; Protein Urine Trace mg/dL (Negative); Specific Grav Ur 1.038 (1.001-1.035); Squamous Epithelial Cell Urine Occasional /hpf (Few)
[2023-11-20 23:20] LABS: Bacteria Urine Trace /hpf
--- NOTE | 2023-11-21 01:29 | ED.FEMALEGU ---
HPI - Female Genitourinary General Chief complaint: Urogenital-Female Stated complaint: UTI? Time Seen by Provider: 11/21/23 01:20 Source: patient Mode of arrival: ambulatory Limitations: no limitations History of Present Illness HPI Narrative: this is a 43-year-old female who with PMH of UTI who presents to the ED for chief complaint of urinary frequency and dysuria x1 day. Reports she has had UTI in the past with last 1 being in 2020. Endorses suprapubic pressure that radiates into the pelvic area. Denies any vaginal complaints or concerns for STDs. Denies flank pain, N/V/D, fevers, chills. Related Data Allergies Allergy/AdvReac Type Severity Reaction Status Date / Time No Known Allergies Allergy Verified 08/15/22 17:59 Review of Systems Review of Systems: All systems as dictated in [facility] Past Medical History Medical History Over weight Patient denies medical problems and not yet delivered Surgical History Surgical History (Updated 05/24/20 @ 03:27 by Santos Mayer DO) H/O dilation and curettage No history of previous surgery Social History Social History Smoking status: Never smoker Substance use: never Gender identity (if verbalized by the patient): Female Sexual Orientation (if Verbalized by the Patient): Straight or Heterosexual Spiritual care concerns: No Exam Narrative: GENERAL: Well-appearing, well-nourished, and in no acute distress. HEAD: Normocephalic, atraumatic. EYES: PERRLA and EOMI. ENT: Nares clear, no rhinorrhea or epistaxis. Mucous membranes moist. Oropharynx without tonsillar hypertrophy exudate or other lesions. NECK: Supple. No adenopathy or masses. CHEST: No respiratory distress. Clear to auscultation. No wheezes rales or rhonchi HEART: Regular rate and rhythm. No murmur heard. Normal peripheral pulses. ABDOMEN: Soft, nontender, nondistended, normal active bowel sounds. MSK: Normal range of motion. No edema. SKIN: Warm, dry, no rash. NEURO: Alert and oriented x4. No focal deficits. PSYCH: Normal mood and affect. Course Vital Signs Vital signs: Vital Signs Temperature 97.7 F 11/20/23 22:47 Pulse Rate 82 11/20/23 22:47 Respiratory Rate 18 11/20/23 22:47 Blood Pressure 119/65 11/20/23 22:47 Pulse Oximetry 99 11/20/23 22:47 Oxygen Delivery Room Air 11/20/23 22:47 Temperature 97.7 F 11/20/23 22:47 Pulse Rate 82 11/20/23 22:47 Respiratory Rate 18 11/20/23 22:47 Blood Pressure 119/65 11/20/23 22:47 Pulse Oximetry 99 11/20/23 22:47 Oxygen Delivery Room Air 11/20/23 22:47 MDM - Female Genitourinary MDM Narrative Medical decision making narrative: This is a 43-year-old female who presents to the ED for chief complaint of UTI symptoms for the past day. Vitals are normal. Exam is benign overall. No evidence of acute abdomen or pyelonephritis. UA is showing 11-20 whites, trace leuks and 3-5 reds. Culture is pending. Will treat in the setting of UTI symptoms. Cephalexin Rx given. Pt will be discharged in stable condition. Return precautions given and supportive measures discussed. Pt is understanding and agreeable with plan for discharge and follow-up with PCP. Lab Data Labs: Lab Results 11/20/23 Range/Units 22:56 Urine Color Yellow (Yellow) Urine Appearance Clear (Clear) Urine pH 7.0 (5.0-9.0) Ur Specific [place] 1.038 H (1.001-1.035) Urine Protein Trace (Negative) mg/dL Urine Glucose (UA) Negative (Negative) mg/dL Urine Ketones Trace H (Negative) mg/dL Ur Blood (Man) Negative (Negative) Urine Nitrate Negative (Negative) Urine Bilirubin Negative (Negative) Urine Urobilinogen 1.0 (<2.0) mg/dL Leukocyte Esterase Rfl Trace H (Negative) BRYAN/UL Urine RBC 3-5 H (0-2) /hpf Urine WBC 11-20 H (0-3) /hpf Ur Squamous Epith Diann
[2023-11-21 01:32] VITALS: BP 124/70; PULSE 78; RESP 18; O2SAT 100
[2023-11-21] MEDS: CEPHALEXIN 500 MG CAPSULE PO (01:36)
== END 2023-11-21 01:44 | disposition home or self-care (01) ==
PROVIDERS: Emergency Provider Physician Assistant; PCP Registered Nurse
DX: N39.0 Urinary tract infection, site not specified (principal)
CPT/HCPCS: 81001; 87086; 99283; A9270